=== PATIENT | female | born 1975 | race Caucasian/White ===

== ENCOUNTER 2016-12-20 05:31 | Emergency (ER) | payer BC ==
[~2016-12-20 05:31] MED LIST: HYDR-3533 PO; POLY10O RIGHT EYE; Z.0.BCPILL PO
[2016-12-20 05:33] VITALS: BP 117/61; PULSE 73; RESP 16; TEMP 98.8; O2SAT 97
--- NOTE | 2016-12-20 06:07 | PD ---
HPI Chief Complaint: Medical Clearance Time Seen by Provider: 06:03 Travel History International Travel<30 days: No Contact w/Intl Traveler<30days: No Traveled to known affect area: No History of Present Illness HPI Patient comes in with concerns over not sleeping well over the past 4 nights. Patient states she slept hour or so for 2 nights and then over the past couple of nights has not slept at all. Patient states she tried [id number] Unisom with no improvement of her symptoms. Patient states she is feeling stress and is worried she may lose her job secondary to not sleeping. Patient states she does not have a primary care doctor currently but does see her car tracer annually and contact them regarding this, but was told she needs to get in with primary care doctor. Patient denies anything making her symptoms worse. Patient states that she hasn't felt herself after being treated for H. pylori last month. Denies any chest pain, shortness breath, fevers, homicidal or suicidal ideations, or abdominal pain. PFSH Past Medical History Medical History: Denies Significant Hx Cancer: No Cardiovascular Problems: No Diabetes: No Diminished Hearing: No Endocrine: No Genitourinary: No Hepatitis: No Hiatal Hernia: No Immune Disorder: No Musculoskeletal: No Neurologic: No Psychiatric: No Respiratory: No Thyroid Disease: No ?: Not LMP: 12/11/16 Past Surgical History Gynecologic Surgery: Yes (fibroid removed from right breast) Oral Surgery: Yes (t and a) Social History Alcohol Use: No Tobacco Use: No Substance Use: No Allergies-Medications (Allergen,Severity, Reaction): Coded Allergies: No Known Allergies (Unverified , 10/06/12) Reported Meds & Prescriptions Reported Meds & Active Scripts Active Vistaril (Hydroxyzine Pamoate) 50 Mg Cap 50 Mg PO HS PRN Review of Systems Except as stated in HPI: all other systems reviewed are Neg Physical Exam Narrative GENERAL: Well-developed, well nourished, in no acute distress, and non-ill appearing. SKIN: Focused skin assessment warm and dry. HEAD: Atraumatic. Normocephalic. EYES: Pupils equal and round. EOMI. No scleral icterus. No injection or drainage. ENT: No nasal bleeding or discharge. Mucous membranes pink and moist. NECK: Trachea midline. Supple. No nuclear rigidity. CARDIOVASCULAR: Regular rate and rhythm. No murmur appreciated. RESPIRATORY: No accessory muscle use. No respiratory distress. Clear to auscultation. Breath sounds equal bilaterally. MUSCULOSKELETAL: No obvious deformities. No clubbing. No cyanosis. No edema. Full range of motion. NEUROLOGICAL: Awake and alert. No obvious cranial nerve deficits. Motor grossly within normal limits. Normal speech. PSYCHIATRIC: Appropriate mood and affect; insight and judgment normal. Data Data Last Documented VS Vital Signs Date Time Temp Pulse Resp B/P Pulse Ox O2 Delivery O2 Flow Rate FiO2 12/20/16 05:33 98.8 73 16 117/61 97 Room Air MDM Medical Decision Making Medical Screen Exam Complete: Yes Emergency Medical Condition: Yes Differential Diagnosis Insomnia, difficulty sleeping, anxiety, stress, other Narrative Course Patient in no obvious distress upon re-evaluation. Patient was asked if they wanted to speak to my attending, which the patient did not wish to do at this time. Any questions/concerns in reference to patient diagnosis/condition discussed and clarified prior to patient's discharge. Reinforced sheer importance of close follow up with patient's primary physician or primary care clinic. Instructed patient to return to ED immediately, if symptoms return/ worsen. Pt showed understanding of above instructions. Further instructions and recommendations were detailed in discharge paperwork. Pt ambulated without difficulty out of ED at discharge. Diagnosis Primary Impression: Difficulty sleeping Patient Instructions: General Instructions Departure Forms: Work Release Enter return to work date: Dec 22, 2016 Additional Instructions: Follow-up with your primary care physician 15 days for reevaluation. Take all medication as prescribed. Return to the emergency department if symptoms get worse. Med/Other Pt SpecificInfo: Prescription(s) given Scripts Hydroxyzine Pamoate (Vistaril)50 Mg Cap50 Mg PO HS PRN (INSOMNIA) #6 CAP Ref 0 Prov:Paula Jean Baptiste DO 12/20/16 Disposition: 01 DISCHARGE HOME Condition: Stable Ethan Oreilly Dec 20, 2016 06:07
[2016-12-20] MEDS ORDERED: VIST50CA PO (06:08)
== END 2016-12-20 07:03 | disposition home or self-care (01) ==
LOC: NEPD 05:31
DX: G47.9 Sleep disorder, unspecified (principal)
CPT/HCPCS: 99283